=== PATIENT | male | born 2000 | race Hispanic/Latino ===

== ENCOUNTER 2022-06-30 14:13 | Emergency (ER) | payer OTHER ==
[~2022-06-30] VITALS: Ht 177.8 cm; Wt 108.4 kg
[~2022-06-30 14:13] MED LIST: AMOXICILLIN500 MG PO; HYDROCODON-ACE1 EA10 PO; IBUPROFEN400 MG PO; IBUPROFEN600 MG PO; LEVOTHYROXINE75 MCG PO; NORCO 10-325 T1 EACH PO
[2022-06-30] MEDS ORDERED: HYDROCODON-ACE1 EA10 PO (18:50)
== END 2022-06-30 19:22 | disposition home or self-care (01) ==
LOC: ED 14:13
DX: S43.102A Unspecified dislocation of left acromioclavicular joint, initial encounter (principal); X58.XXXA Exposure to other specified factors, initial encounter
CPT/HCPCS: 73030; 99283-25; A9270

== ENCOUNTER 2022-10-30 13:33 | Emergency (ER) | payer OTHER ==
[~2022-10-30] VITALS: Ht 177.8 cm; Wt 80.3 kg
[2022-10-30] MEDS ORDERED: PRILOSEC OTC20 MG PO (15:57)
[2022-10-30] MEDS ORDERED: ONDANSETRON ODT4 MG PO (15:57)
== END 2022-10-30 16:40 | disposition home or self-care (01) ==
LOC: ED 13:33
DX: K29.70 Gastritis, unspecified, without bleeding (principal)
CPT/HCPCS: 36415; 80053; 81003; 83690; 85025; 99284

== ENCOUNTER 2022-12-09 13:39 | Emergency (ER) | payer OTHER ==
[~2022-12-09] VITALS: Ht 177.8 cm; Wt 93.0 kg
[~2022-12-09 13:39] MED LIST changes: +ONDANSETRON ODT4 MG PO; +PRILOSEC OTC20 MG PO
[2022-12-09] MEDS ORDERED: NAPROSYN500 MG PO (15:20)
[2022-12-09] MEDS ORDERED: PRILOSEC OTC20 MG PO (15:20)
--- NOTE | 2022-12-09 21:50 | EKG ---
[facility] [address] [facility] [place] [id number] Signed Normal sinus rhythm with sinus arrhythmia Possible Left atrial enlargement Incomplete right bundle branch block Borderline ECG No previous ECGs available Confirmed by Ken Cordero MD () on 12/09/2022 9:50:27 PM Electronically Signed By: KEN CORDERO MD 12/09/[id number] PATIENT NAME: SAEID DLILON Electrocardiogram DATE OF : [birth year] PHYSICIAN: KEN CORDERO MD REPORT #: [id number] REPORT IS CONFIDENTIAL AND NOT TO BE RELEASED WITHOUT AUTHORIZATION
== END 2022-12-09 15:30 | disposition home or self-care (01) ==
LOC: ED 13:39
DX: K21.9 Gastro-esophageal reflux disease without esophagitis (principal); R07.89 Other chest pain; Z79.899 Other long term (current) drug therapy; Z20.822 Contact with and (suspected) exposure to COVID-19
CPT/HCPCS: 36415; 71045; 80053; 84484; 85025; 87502; 93005; 93010; 99285-25; U0003